=== PATIENT | female | born 1990 ===

== ENCOUNTER → 2017-07-17 | Outpatient (CLI) | payer BC ==
[~2017-07-17] MED LIST: HYDACE5 PO; IBUP600 PO
== END ==
LOC: OLS 15:02
DX: K51.50 Left sided colitis without complications (principal); Z79.899 Other long term (current) drug therapy
CPT/HCPCS: 83993

== ENCOUNTER → 2019-07-23 | Outpatient (CLI) | payer BC ==
[2019-07-24 10:13] LABS: Candida species (DNA Probe) Negative (NEGATIVE); G. vaginalis (DNA Probe) Positive (NEGATIVE); T. vaginalis (DNA Probe) Negative (NEGATIVE)
== END | disposition home or self-care (01) ==
LOC: LAB SHORT 11:00 → LAB 11:00
PROVIDERS: Obstetrics & Gynecology
DX: N76.0 Acute vaginitis (principal)
CPT/HCPCS: 87480; 87510; 87660

== ENCOUNTER 2019-09-11 14:38 | Inpatient (IN) | payer BC ==
[~2019-09-11] VITALS: Ht 157.5 cm; Wt 90.9 kg
[2019-09-11] MEDS ORDERED: Balsalazide Di750 MG PO (16:37)
[2019-09-11] MEDS ORDERED: ADAL40PEN SC (16:37)
[2019-09-11] MEDS ORDERED: PRENATAL TABLE1 EAC2 PO (16:38)
[2019-09-11 16:47] LABS: BASOPHILS ABSOLUTE AUTO 0.09 K/mm3 (0.00-0.23); BASOPHILS PERCENT AUTO 1 % (0-2); EOSINOPHILS ABSOLUTE AUTO 0.22 K/mm3 (0.00-0.68); EOSINOPHILS PERCENT AUTO 1 % (0-6); Hematocrit 38.6 % (33.0-51.0); IMMATURE GRAN ABSOLUTE AUTO 0.24 K/mm3 (0.00-0.10); IMMATURE GRAN PERCENT AUTO 1 % (0-1); LYMPHOCYTES ABSOLUTE AUTO 3.87 K/mm3 (0.84-5.20); LYMPHOCYTES PERCENT AUTO 21 % (21-46); MONOCYTES ABSOLUTE AUTO 0.99 K/mm3 (0.16-1.47); MONOCYTES PERCENT AUTO 5 % (4-13); Mean Corpuscular HGB 28.2 pg (26.0-34.0); Mean Corpuscular HGB Conc 33.7 g/dL (31.5-36.5); Mean Corpuscular Volume 84 fL (80-100); Mean Platelet Volume 9.8 fL (9.1-12.4); NEUTROPHILS ABSOLUTE AUTO 13.07 K/mm3 (1.96-9.15); NEUTROPHILS PERCENT AUTO 71 % (41-73); Platelet Count 424 K/mm3 (150-400); RDW Coefficient Variation 14.4 % (11.7-14.2); RDW Standard Deviation 43.7 fL (35.1-46.3); Red Blood Cell Count 4.61 M/mm3 (3.80-5.20); White Blood Cell Count 18.48 K/mm3 (4.00-11.30)
[2019-09-12 12:46] LABS: Hematocrit 37.3 % (33.0-51.0); Hemoglobin 12.3 g/dL (11.5-16.0); Mean Corpuscular HGB 27.8 pg (26.0-34.0); Mean Corpuscular Volume 84 fL (80-100); Platelet Count 379 K/mm3 (150-400); RDW Standard Deviation 43.3 fL (35.1-46.3); Red Blood Cell Count 4.42 M/mm3 (3.80-5.20); White Blood Cell Count 19.54 K/mm3 (4.00-11.30)
== END 2019-09-13 12:10 | disposition home or self-care (01) | DRG 807 ==
LOC: BC 14:38 → OBS 14:38 → BC 14:39 → OBS 16:25 → BC 16:27
PROVIDERS: ADMIT Obstetrics & Gynecology
PROC: 10E0XZZ Delivery of Products of Conception, External Approach (ICD-10-PCS; principal; 2019-09-12)
DX: O80 Encounter for full-term uncomplicated delivery (principal); Z37.0 Single live birth; Z3A.39 39 weeks gestation of pregnancy
CPT/HCPCS: 36415; 59025; 85025; 85027; 86850; 86900; 86901; A9270; J2210; J2590; J7120

== ENCOUNTER → 2019-12-02 | Outpatient (CLI) | payer BC ==
[~2019-12-02] MED LIST changes: +ADAL40PEN SC; +Balsalazide Di750 MG PO; +PRENATAL TABLE1 EAC2 PO
== END | disposition home or self-care (01) ==
LOC: LAB 10:30 → LAB SHORT 10:30
DX: K51.50 Left sided colitis without complications (principal); K92.1 Melena; R19.7 Diarrhea, unspecified; Z79.899 Other long term (current) drug therapy
CPT/HCPCS: 83993; 87015; 87045; 87046; 87205; 87493; 87899

== ENCOUNTER 2019-12-29 00:03 | Day surgery (SDC) | payer BC ==
[2019-12-29] MEDS ORDERED: Loratadine10 MG PO (09:11)
== END 2019-12-29 10:33 | disposition home or self-care (01) ==
LOC: ATC 00:03
DX: K51.50 Left sided colitis without complications (principal); Z79.899 Other long term (current) drug therapy
CPT/HCPCS: 96365; J3380; J7050

== ENCOUNTER 2020-02-09 00:32 | Day surgery (SDC) | payer BC ==
[~2020-02-09 00:32] MED LIST changes: +Loratadine10 MG PO
== END 2020-02-09 11:26 | disposition home or self-care (01) ==
LOC: ATC 00:32
DX: K51.50 Left sided colitis without complications (principal); Z79.899 Other long term (current) drug therapy
CPT/HCPCS: 96365; J3380; J7050

== ENCOUNTER 2020-04-04 00:03 | Day surgery (SDC) | payer BC | END 2020-04-04 09:57 | disposition home or self-care (01) | LOC: ATC 00:03 | DX: K51.50 Left sided colitis without complications (principal); Z79.899 Other long term (current) drug therapy | CPT/HCPCS: 96365; J3380; J7050 ==

== ENCOUNTER 2020-05-30 00:04 | Day surgery (SDC) | payer BC ==
[2020-05-30] MEDS ORDERED: ENTYVIO300 M1 IV (09:35)
== END 2020-05-30 10:35 | disposition home or self-care (01) ==
LOC: ATC 00:04
DX: K51.50 Left sided colitis without complications (principal); Z79.899 Other long term (current) drug therapy
CPT/HCPCS: 96365; J3380; J7050

== ENCOUNTER 2020-08-08 00:24 | Day surgery (SDC) | payer BC ==
[~2020-08-08 00:24] MED LIST changes: +ENTYVIO300 M1 IV
== END 2020-08-08 14:52 | disposition home or self-care (01) ==
LOC: ATC 00:24
DX: K51.50 Left sided colitis without complications (principal); Z79.899 Other long term (current) drug therapy
CPT/HCPCS: 96365; A9270; J3380; J7050

== ENCOUNTER 2020-10-03 00:30 | Day surgery (SDC) | payer BC | END 2020-10-03 14:59 | disposition home or self-care (01) | LOC: ATC 00:30 | DX: K51.50 Left sided colitis without complications (principal); Z79.899 Other long term (current) drug therapy | CPT/HCPCS: 96365; A9270; J3380; J7050 ==

== ENCOUNTER 2020-11-28 00:21 | Day surgery (SDC) | payer BC | END 2020-11-28 14:56 | disposition home or self-care (01) | LOC: ATC 00:21 | DX: K51.50 Left sided colitis without complications (principal); Z79.899 Other long term (current) drug therapy | CPT/HCPCS: 96365; J3380; J7050 ==

== ENCOUNTER 2021-02-20 02:46 | Day surgery (SDC) | payer BC ==
[~2021-02-20] VITALS: Wt 80.5 kg
--- NOTE | 2021-02-20 08:05 | NUR ---
PT DECLINED PRE MED TODAY.
== END 2021-02-20 09:05 | disposition home or self-care (01) ==
LOC: ATC 02:46
DX: K51.50 Left sided colitis without complications (principal)
CPT/HCPCS: 96365; A9270; J1200; J2920; J3380; J7050

== ENCOUNTER 2021-03-20 06:08 | Day surgery (SDC) | payer BC ==
[~2021-03-20] VITALS: Ht 157.5 cm; Wt 79.5 kg
[2021-03-20] MEDS ORDERED: ALBU90OI6 (07:07)
[2021-03-20] MEDS ORDERED: ALLEGRA ALLERG180 MG PO (07:07)
== END 2021-03-20 09:03 | disposition home or self-care (01) ==
LOC: ORSCSDS 06:08
PROVIDERS: Podiatrist Foot & Ankle Surgery
PROC: 0LBV0ZZ Excision of Right Foot Tendon, Open Approach (ICD-10-PCS; principal; 2021-03-20 07:30)
DX: M67.471 Ganglion, right ankle and foot (principal)
CPT/HCPCS: J0171; J0690; J1100; J1885; J2001; J2250; J2405; J2704; J3010; J7120

== ENCOUNTER 2021-06-12 07:27 | Day surgery (SDC) | payer BC, OTHER ==
[~2021-06-12] VITALS: Wt 82.2 kg
[~2021-06-12 07:27] MED LIST changes: +ALBU90OI6; +ALLEGRA ALLERG180 MG PO
--- NOTE | 2021-06-12 08:55 | NUR ---
PT DECLINED HER TYLENOL PRE MED TODAY.
== END 2021-06-12 09:35 | disposition home or self-care (01) ==
LOC: ATC 07:27
DX: K51.90 Ulcerative colitis, unspecified, without complications (principal)
CPT/HCPCS: J3380; J7050

== ENCOUNTER → 2021-07-20 | Outpatient (CLI) | payer BC, OTHER ==
[2021-07-20 17:46] LABS: Source, Urine Clean Catch
[2021-07-20 20:47] LABS: Red Blood Cells, Urine 0-2 /hpf (0-2); Squamous Epithelial Cells Rare /hpf (Few); White Blood Cells, Urine 0-2 /hpf (0-5)
[2021-07-20 20:48] LABS: Amorphous Heavy (0-Heavy); Bacteria Mod /hpf
== END | disposition home or self-care (01) ==
LOC: LAB SHORT 17:41
PROVIDERS: Obstetrics & Gynecology
DX: Z34.81 Encounter for supervision of other normal pregnancy, first trimester (principal)
CPT/HCPCS: 81015; 87086

== ENCOUNTER 2021-08-07 01:50 | Day surgery (SDC) | payer BC, OTHER ==
[2021-08-07] MEDS ORDERED: PRENATAL TABLE1 EAC2 (08:24)
--- NOTE | 2021-08-07 12:05 | NUR ---
PT DECLINED HER PREMEDICATIONS TODAY
== END 2021-08-07 09:17 | disposition home or self-care (01) ==
LOC: ATC 01:50
DX: K51.90 Ulcerative colitis, unspecified, without complications (principal)
CPT/HCPCS: J3380; J7050

== ENCOUNTER → 2021-08-18 | Outpatient (CLI) | payer BC ==
[~2021-08-18] MED LIST changes: +PRENATAL TABLE1 EAC2
[2021-08-21 15:12] LABS: HPV 16 Negative (Negative); HPV 18 Negative (Negative); HPV OTHER HR TYPES Negative (Negative)
== END | disposition home or self-care (01) ==
LOC: LAB SHORT 13:11
PROVIDERS: Obstetrics & Gynecology
DX: Z01.419 Encounter for gynecological examination (general) (routine) without abnormal findings (principal)
CPT/HCPCS: 87624; G0123

== ENCOUNTER 2021-10-23 01:06 | Day surgery (SDC) | payer BC ==
[~2021-10-23] VITALS: Wt 91.3 kg
== END 2021-10-23 15:00 | disposition home or self-care (01) ==
LOC: ATC 01:06
DX: K51.90 Ulcerative colitis, unspecified, without complications (principal)
CPT/HCPCS: J3380; J7050

== ENCOUNTER 2021-12-18 02:17 | Day surgery (SDC) | payer BC ==
--- NOTE | 2021-12-18 08:22 | NUR ---
PT DECLINES PRE MEDS.
== END 2021-12-18 09:40 | disposition home or self-care (01) ==
LOC: ATC 02:17
DX: O99.613 Diseases of the digestive system complicating pregnancy, third trimester (principal); K51.50 Left sided colitis without complications
CPT/HCPCS: 96365; J3380; J7050

== ENCOUNTER → 2022-02-02 | Outpatient (CLI) | payer BC | END | disposition home or self-care (01) | LOC: LAB 08:45 → LAB SHORT 08:45 | DX: O09.93 Supervision of high risk pregnancy, unspecified, third trimester (principal) | CPT/HCPCS: 87081; 87150 ==

== ENCOUNTER 2022-03-02 20:04 | Inpatient (IN) | payer BC ==
[~2022-03-02] VITALS: Ht 157.5 cm; Wt 98.2 kg
[2022-03-02] MEDS ORDERED: ACYC400 PO (20:43)
[2022-03-02 21:06] LABS: BASOPHILS ABSOLUTE AUTO 0.09 K/mm3 (0.00-0.23); BASOPHILS PERCENT AUTO 1 % (0-2); EOSINOPHILS ABSOLUTE AUTO 0.42 K/mm3 (0.00-0.68); EOSINOPHILS PERCENT AUTO 3 % (0-6); Hematocrit 39.4 % (33.0-51.0); Hemoglobin 13.4 g/dL (11.5-16.0); IMMATURE GRAN PERCENT AUTO 2 % (0-1); LYMPHOCYTES ABSOLUTE AUTO 3.75 K/mm3 (0.84-5.20); LYMPHOCYTES PERCENT AUTO 23 % (21-46); MONOCYTES ABSOLUTE AUTO 0.83 K/mm3 (0.16-1.47); MONOCYTES PERCENT AUTO 5 % (4-13); Mean Corpuscular HGB 28.8 pg (26.0-34.0); Mean Corpuscular Volume 85 fL (80-100); Mean Platelet Volume 10.1 fL (9.1-12.4); NEUTROPHILS ABSOLUTE AUTO 11.01 K/mm3 (1.96-9.15); NEUTROPHILS PERCENT AUTO 67 % (41-73); Platelet Count 421 K/mm3 (150-400); RDW Coefficient Variation 14.2 % (11.7-14.2); Red Blood Cell Count 4.65 M/mm3 (3.80-5.20)
--- NOTE | 2022-03-03 17:47 | NUR ---
UPSHOWERED VOIDED LINEN CHANGED
== END 2022-03-04 17:09 | disposition home or self-care (01) | DRG 806 ==
LOC: OBS 20:04 → BC 20:05 → OBS 20:11 → BC 20:13
PROVIDERS: ADMIT Obstetrics & Gynecology
PROC: 3E033VJ Introduction of Other Hormone into Peripheral Vein, Percutaneous Approach (ICD-10-PCS; 2022-03-02)
PROC: 10E0XZZ Delivery of Products of Conception, External Approach (ICD-10-PCS; principal; 2022-03-03)
PROC: 10907ZC Drainage of Amniotic Fluid, Therapeutic from Products of Conception, Via Natural or Artificial Opening (ICD-10-PCS; 2022-03-03)
DX: O48.0 Post-term pregnancy (principal); K51.90 Ulcerative colitis, unspecified, without complications; Z37.0 Single live birth; O99.62 Diseases of the digestive system complicating childbirth; O99.214 Obesity complicating childbirth; O69.1XX0 Labor and delivery complicated by cord around neck, with compression, not applicable or unspecified; O71.82 Other specified trauma to perineum and vulva; O99.52 Diseases of the respiratory system complicating childbirth; J45.909 Unspecified asthma, uncomplicated; O76 Abnormality in fetal heart rate and rhythm complicating labor and delivery; Z98.890 Other specified postprocedural states; Z91.048 Other nonmedicinal substance allergy status; Z79.899 Other long term (current) drug therapy; Z3A.40 40 weeks gestation of pregnancy; Z79.2 Long term (current) use of antibiotics; Z79.51 Long term (current) use of inhaled steroids
CPT/HCPCS: 36415; 85025; 86850; 86900; 86901; A9270; J2210; J2590; J3010; J7120

== ENCOUNTER 2022-07-02 00:42 | Day surgery (SDC) | payer BC ==
[~2022-07-02 00:42] MED LIST changes: +ACYC400 PO; +VITAMIN D5000 UNIT PO
== END 2022-07-02 10:27 | disposition home or self-care (01) ==
LOC: ATC 00:42
DX: K51.90 Ulcerative colitis, unspecified, without complications (principal)
CPT/HCPCS: 96365; J3380; J7050

== ENCOUNTER 2022-08-28 00:12 | Day surgery (SDC) | payer BC | END 2022-08-28 09:45 | disposition home or self-care (01) | LOC: ATC 00:12 | DX: K51.50 Left sided colitis without complications (principal) | CPT/HCPCS: 96365; J3380; J7050 ==

== ENCOUNTER 2022-11-01 01:24 | Day surgery (SDC) | payer BC ==
[2022-11-01 13:35] VITALS: BP 114/70
== END 2022-11-01 14:51 | disposition home or self-care (01) ==
LOC: ATC 01:24
DX: K51.50 Left sided colitis without complications (principal)
CPT/HCPCS: 96365; A9270; J3380; J7050

== ENCOUNTER 2022-12-28 01:49 | Day surgery (SDC) | payer BC ==
[2022-12-28 10:10] VITALS: BP 120/75
== END 2022-12-28 11:11 | disposition home or self-care (01) ==
LOC: ATC 01:49
DX: O99.613 Diseases of the digestive system complicating pregnancy, third trimester (principal); Z3A.00 Weeks of gestation of pregnancy not specified; Z79.899 Other long term (current) drug therapy; K51.50 Left sided colitis without complications
CPT/HCPCS: 96365; J3380; J7050

== ENCOUNTER 2023-03-01 01:51 | Day surgery (SDC) | payer BC ==
[2023-03-01 10:10] VITALS: BP 120/64
== END 2023-03-01 11:10 | disposition home or self-care (01) ==
LOC: ATC 01:51
DX: K51.90 Ulcerative colitis, unspecified, without complications (principal); Z79.899 Other long term (current) drug therapy
CPT/HCPCS: 96365; J3380; J7050

== ENCOUNTER 2023-04-29 02:07 | Day surgery (SDC) | payer BC ==
[2023-04-29 13:55] VITALS: BP 119/82
== END 2023-04-29 15:12 | disposition home or self-care (01) ==
LOC: ATC 02:07
DX: K51.50 Left sided colitis without complications (principal)
CPT/HCPCS: 96365; J3380; J7050

== ENCOUNTER 2023-06-27 05:24 | Day surgery (SDC) | payer BC ==
[2023-06-27 09:13] VITALS: BP 127/70
== END 2023-06-27 10:31 | disposition home or self-care (01) ==
LOC: ATC 05:24
DX: K51.50 Left sided colitis without complications (principal); Z86.010 Personal history of colon polyps; Z79.899 Other long term (current) drug therapy
CPT/HCPCS: 96365; J3380; J7050

== ENCOUNTER 2023-08-22 02:54 | Day surgery (SDC) | payer BC ==
[2023-08-22] MEDS ORDERED: Vedolizumab 300 MG in NS 250 ML IV SCH (06:00)
[2023-08-22 09:18] VITALS: BP 130/75
== END 2023-08-22 10:23 | disposition home or self-care (01) ==
LOC: ATC 02:54
DX: K51.50 Left sided colitis without complications (principal); Z86.010 Personal history of colon polyps
CPT/HCPCS: 96365; J3380; J7050